=== PATIENT | female | born 1985 | race Caucasian/White ===

== ENCOUNTER 2018-12-04 17:37 | Inpatient (IN) | payer MEDICAID ==
[~2018-12-04] VITALS: Ht 167.6 cm; Wt 93.9 kg
[2018-12-04 18:08] VITALS: BP 115/76
--- NOTE | 2018-12-04 19:05 | NUR ---
REPORT RECEIVED FROM RAN: PT IS TO BE TAKEN TO OR PER REFERRAL. OR NURSES AT BEDSIDE PREPARING PT FOR TRNASFER TO OR.
--- NOTE | 2018-12-04 19:06 | NUR ---
REFFERED BY DR. NINA FOR MOLAR . A0 LMP 09/25/18. PT REPORTS MINOR PAIN TO LLQ 3/10 AND THROBBING. HX: NONE RX: NONE
--- NOTE | 2018-12-04 19:09 | NUR ---
LAB NOTIFIED, BLOOD COLLECTED AND READY FOR CARDIOLOGY RN
[2018-12-04] MEDS ORDERED: PROPOFOL 200 MG/20 ML VIAL IV ONE (19:15)
[2018-12-04] MEDS ORDERED: SEVOFLURANE 250 ML BTL INH ONE (19:15)
--- NOTE | 2018-12-04 19:15 | NUR ---
PT TAKEN TO OR VIA GUROSIEL. OR NURSE X 2 ACCOMPANYING.
[2018-12-04] MEDS ORDERED: fentaNYL 0.05 MG/ML VIAL ONE (19:24)
[2018-12-04] MEDS ORDERED: MIDAZOLAM 2 MG/2 ML VIAL ONE (19:24)
[2018-12-04 19:34] LABS: BASOPHILS % (AUTO) 0.4 % (0.0-2.0); EOSINOPHILS # (AUTO) 0.1 K/uL (0-0.4); EOSINOPHILS % (AUTO) 0.6 % (0.0-4.0); HEMATOCRIT 43.7 % (36-48); HEMOGLOBIN 14.7 g/dL (12.0-16.0); LYMPHOCYTES % (AUTO) 18.3 % (20.5-51.1); MEAN CORPUSCULAR HEMOGLOBIN 31 pg (27-31); MEAN CORPUSCULAR HGB CONC 34 g/dL (33-37); MEAN CORPUSCULAR VOLUME 91.7 fL (80-94); MONOCYTES # (AUTO) 0.5 K/uL (0.8-1.0); MONOCYTES % (AUTO) 4.4 % (1.7-9.3); NEUTROPHILS # (AUTO) 8.3 K/uL (1.8-7.7); NEUTROPHILS % (AUTO) 76.3 % (42.2-75.2); PLATELET COUNT (AUTO) 350 K/uL (140-450); RED BLOOD CELL COUNT(AUTO) 4.76 MIL/uL (4.20-5.40); RED CELL DISTRIBUTION WIDTH 13.8 % (11.6-13.7); WHITE BLOOD COUNT (AUTO) 10.9 K/uL (4.8-10.8)
[2018-12-04 19:36] LABS: APPEARANCE,URINE CLEAR (CLEAR); BILIRUBIN,URINE NEGATIVE (NEGATIVE); BLOOD, URINE NEGATIVE (NEGATIVE); COLOR,URINE YELLOW (YELLOW); LEUKOCYTE ESTERASE ,URINE TRACE (NEGATIVE); NITRITE, URINE NEGATIVE (NEGATIVE); UGLUCOSE NEGATIVE (NEGATIVE)
[2018-12-04] MEDS ORDERED: LACTATED RINGERS 1,000 ML IV SCH (19:43)
[2018-12-04] MEDS ORDERED: diphenhydrAMINE 50 MG/ML VIAL IVP PRN (19:45)
[2018-12-04] MEDS ORDERED: MEPERIDINE 25 MG/ML SYR IVP PRN (19:45)
[2018-12-04] MEDS ORDERED: ONDANSETRON 4 MG/2 ML VIAL IVP PRN (19:45)
[2018-12-04] MEDS ORDERED: HYDROmorphone 1 MG/ML AMP IVP PRN (19:45)
[2018-12-04 19:49] LABS: RBC,URINE 0-5 /HPF (0-5)
[2018-12-04 19:51] LABS: ANION GAP 12.5 (8-16); CARBON DIOXIDE 26.8 mmol/L (21-32); CREATININE 0.7 mg/dL (0.6-1.3); POTASSIUM 3.3 mmol/L (3.5-5.1)
[2018-12-04 19:55] LABS: PROTHROMBIN TIME 9.1 secs (10.8-13.4)
[2018-12-04 19:56] LABS: ALBUMIN 3.9 g/dL (3.4-5.0); TOTAL BILIRUBIN 0.4 mg/dL (0.0-1.0)
--- NOTE | 2018-12-04 20:40 | NUR ---
RECEIVED PT FROM OR NURSE. SPOUSE AT BEDSIDE. NO S/S OF SOB NOTED ON ROOM AIR. DENIES PAIN. PT IN STABLE CONDITION. VS CHECKED, WITHIN NORMAL RANGE, MRSA SWAB DONE, BED IN LOW POSITION, CALL LIGHT WITHIN REACH.
--- NOTE | 2018-12-04 22:00 | NUR ---
PT ABLE TO URINATE, TOLERATE WITH REGULAR FOOD, SANDWICH. READY TO BE DISCHARGED. REMOVE IV LINE, CANNULA INTACT. ABLE TO AMBULATE. LEAVE ROOM WITH SPOUSE.
[2018-12-04 22:07] VITALS: BP 118/75
== END 2018-12-04 22:25 | disposition home or self-care (01) | DRG 560 ==
LOC: MED 17:37 → MTU 18:13
PROVIDERS: ADMIT Obstetrics & Gynecology; ATTEND Obstetrics & Gynecology
PROC: 10D07Z8 Extraction of Products of Conception, Other, Via Natural or Artificial Opening (ICD-10-PCS; principal; 2018-12-04 18:30)
DX: O02.0 Blighted ovum and nonhydatidiform mole (principal); Z3A.08 8 weeks gestation of pregnancy
CPT/HCPCS: 36415; 80053; 81001; 84443; 84702; 85025; 85610; 86900; 86901; 87081; 87086; 99281; J2250; J2704; J3010; J7030; J7120